=== PATIENT | male | born 1940 | race Caucasian/White ===

== ENCOUNTER → 2016-12-21 | Day surgery (SDC) | payer MEDICARE, BC ==
[~2016-12-21] VITALS: Ht 177.8 cm; Wt 108.6 kg
[~2016-12-21] MED LIST: ALDACTONE25 MG PO; ALTACE5 MG PO; ARTIFICIAL TEAR15 ML OPHTH; ASPIRIN LO-DOSE81 MG PO; AUGMENTIN 875-1 EACH PO; CERTAVITE SR-A1 EACH PO; COLCRYS0.6 MG PO; CORDARONE,PACE200 MG PO; COUMADIN ** IA5 MG PO; COUMADIN 4MG **4 MG PO; DELTASONE2.5 MG PO; FLOMAX0.4 MG PO; GLUCOPHAGE1000 MG PO; ISORDIL10 MG PO; LANOXIN (DIGI125 MCG PO; LASIX40 MG PO; LASIX80 MG PO; LEVOTHROID (SY50 MCG PO; LEXAPRO10 MG PO; LIPITOR40 MG PO; MICROZIDE12.5 MG PO; MILK OF MA400 MG/5 M PO; NEURONTIN100 MG PO; NORCO 7.5-3251 EACH PO; OMNICEF 300MG300 MG PO; PRILOSEC20 MG PO; PROVENTIL OR V6.7 GM INH; REFRESH PLUS1 EACH OPHTH; SALINE NASAL SP88 ML NOSE; SYMBICORT 16010.2 GM INH; TYLENOL325 MG PO; ZAROXOLYN5 MG PO; ZOFRAN4 MG PO; ZYLOPRIM100 MG PO
--- NOTE | ~2016-12-21 | ECHO ---
Transesophageal Echocardiography Report (LOWELL) Demographics Patient Name ETHEL ZENG Date of Study 12/21/2016 Patient Number [id number] Visit Number [id number] Date of 1940 Room Number Gender Male Number Age 76 year(s) Referring Shahid Kenyon Physics Teacher Beni Carter RVT Physician Physician Interpreting Shahid Kenyon Insulation And Flooring Assembler Physician MD Supervising Ordering Shahid Kenyon MD/MIKEP Physician Nurse Stress Guest Request Runner Conclusions Summary Left atrial appendage was evaluated, no evidence of thrombus.Patient on oxygen per nasal cannula 14/05 and has underlying pneumonia being treated and has chronic partially compensated diastolic CHF.He received mild sedation because of his respiratory status.He was continuously coughing after intubation allowing very little time for more extensive evaluation. Procedure Type of Study LOWELL procedure:Color Doppler. Procedure Date Date: 12/21/2016 Start: 08:15 AM Study Location: Inpatient Portable Technical Quality: Adequate visualization Indications:Atrial fibrillation. Patient Status: Routine HR: 72 bpm BP: 156/93 mmHg LOWELL Performed By: the attending and the business development sales executive Allergies - No known allergies. Signature dtt: Chantale Key dtd: 12/21/16 0815 Physician Self Edit
--- NOTE | ~2016-12-21 | OR ---
PATIENT'S NAME: ETHEL ZENG [facility] AGE: 76 Y [address] ROOM: [place] [address] LOCATION: [facility] [place] ADMIT DATE: 12/21/2016 OR/Procedure Report DISCHARGE DATE: FAMILY PHYSICIAN: Jl Blanco MD ATTENDING PHYSICIAN: Chantale Key SURGEON: Chantale Key MD BROOMMAKING SUPERVISOR: DATE OF PROCEDURE: 12/21/2016 PROCEDURE PERFORMED: This is a transesophageal echocardiogram (LOWELL) followed by cardioversion. INDICATION FOR PROCEDURE: The patient is a male with chronic diastolic congestive heart failure. He is not getting any better with the existing treatment options. The idea is to try to cardiovert him and see if that will improve his overall clinical status. DESCRIPTION OF PROCEDURE: A transesophageal echocardiogram was done quickly before the cardioversion to make sure that there was no left atrial appendage thrombus. There was none, so cardioversion was performed. Using an anteroposterior pad replacement at 250 joules and under sedation with the help of nurse commercial attorney, the cardioversion was performed in a synchronized mode. The patient went into atrial paced, ventricular paced rhythm. The patient will be transferred back to [facility] as per conversation with Dr. Blanco. MD PADMINI WATKINS/eval /[id number] d: 12/21/16 1615 t: 12/26/16 1326, OPERATIVE SUMMARY
[2016-12-21 07:48] LABS: INR - (THERAPEUTIC) 1.4 (0.9-1.1); PROTIME 15.2 SECONDS (9.6-11.1)
== END ==
LOC: GOPD 12-19 14:30 → GSDC 06:55 → GOPP 07:00 → GOPD 07:00 → EDSTATUS 07:00 → GCAR 08:00 → GOPD 12:30
PROVIDERS: Internal Medicine Interventional Cardiology
DX: I50.32 Chronic diastolic (congestive) heart failure (principal); J45.909 Unspecified asthma, uncomplicated; J44.9 Chronic obstructive pulmonary disease, unspecified; J43.9 Emphysema, unspecified; J18.9 Pneumonia, unspecified organism; I48.91 Unspecified atrial fibrillation; Z79.899 Other long term (current) drug therapy; Z79.891 Long term (current) use of opiate analgesic; Z88.8 Allergy status to other drugs, medicaments and biological substances; M10.9 Gout, unspecified; E11.42 Type 2 diabetes mellitus with diabetic polyneuropathy; M19.90 Unspecified osteoarthritis, unspecified site; Z98.890 Other specified postprocedural states; E11.621 Type 2 diabetes mellitus with foot ulcer; L97.509 Non-pressure chronic ulcer of other part of unspecified foot with unspecified severity; Z79.01 Long term (current) use of anticoagulants
CPT/HCPCS: J2001; J7030

== ENCOUNTER → 2017-01-01 | Outpatient (CLI) | payer MEDICARE, BC ==
--- NOTE | ~2017-01-01 | PUL ---
PATIENT'S NAME: ETHEL ZENG [facility] AGE: 76 Y [address] ROOM: [place] [address] LOCATION: [facility] ADMIT DATE: 01/01/2017 Pulmonary DISCHARGE DATE: FAMILY PHYSICIAN: Jl Blanco MD ATTENDING PHYSICIAN: Chantale Key NAME OF PROCEDURE: Sleep study DATE OF PROCEDURE: 01/01/17 TECH: KATHY Morris [place]: [facility] [id number] MEDICAL HISTORY: The patient is a 76-year-old gentleman with a history of hypoxemia, and daytime sleepiness. SLEEP STAGE SUMMARY: The patient was studied for 421 minutes of which he slept 390 minutes. He fell asleep in a minute and slept for 93% of the night. Sleep architecture revealed a decline in slow wave and REM sleep. RESPIRATORY SUMMARY: Oxygen saturations ranged from 85-94% and were below 88% for 32 minutes. The patient uses oxygen at home 2 liters. Oxygen at 2 liters was instituted at the beginning of this study decreased to 1 liter and then back to 2 liters for hypoxemia. There were however a significant number of obstructive apneas and hypopneas. Overall apnea/hypopnea index was moderately elevated. The majority of events occurred too late in the study to allow for initiation of CPAP. EKG SUMMARY: Average heart rate during sleep 68 beats per minute. No dysrhythmias were noted other than the fact that it was a paced rhythm. LIMB MOVEMENT SUMMARY: No clinically relevant periodic limb movements were noted. SUMMARY: 1. Baseline hypoxemia responsive to 2 liters of oxygen. 2. At least moderate obstructive sleep apnea. PLAN: Would consider a repeat study for initiation of CPAP and adjustment in conjunction with his oxygen. Patient will receive results from the ordering. provider. PATIENT'S NAME: ETHEL ZENG [facility] AGE: 76 Y [address] ROOM: [place] [address] LOCATION: [facility] ADMIT DATE: 01/01/2017 Pulmonary DISCHARGE DATE: FAMILY PHYSICIAN: Jl Blanco MD ATTENDING PHYSICIAN: Chantale Key MD PIPO BUSCH/ /[id number] dtt: 01/12/17 1303 , Leander Paiz dtd: 01/05/17 1105
== END | disposition disaster alternative care site (69) ==
LOC: GSLP 12-03 21:00
DX: G47.10 Hypersomnia, unspecified (principal); G47.33 Obstructive sleep apnea (adult) (pediatric); R09.02 Hypoxemia